=== PATIENT | female | born 1980 | race Caucasian/White ===

== ENCOUNTER 2018-09-08 14:37 | Emergency (ER) | payer SELFPAY ==
[~2018-09-08] VITALS: Ht 172.7 cm; Wt 81.6 kg
--- NOTE | 2018-09-08 15:12 | PHYS DOC ---
Past Medical History Past Medical History: No Pertinent History Past Surgical History: No Surgical History Alcohol Use: Occasionally Drug Use: Marijuana, Phencyclidine Adult General Chief Complaint Chief Complaint: DRUG ABUSE HPI HPI Patient is a 37 year old female who presents with patient came in per EMS of which she was found laying in the middle of Road after she had smoked PCP and beat. Patient denies any alcohol use. Patient answers some questions appropriately and others not appropriately. Patient states that she is in pain when asked but then laughs. Patient states she is 9 months but does not look 9 months . Pupils are at a 3 and are equal and reactive. Review of Systems Review of Systems Constitutional: Denies fever or chills [] Eyes: Denies change in visual acuity, redness, or eye pain [] HENT: Denies nasal congestion or sore throat [] Respiratory: Denies cough or shortness of breath [] Cardiovascular: No additional information not addressed in HPI [] GI: Denies abdominal pain, nausea, vomiting, bloody stools or diarrhea [] : Denies dysuria or hematuria [] Musculoskeletal: Denies back pain or joint pain [] Integument: Denies rash or skin lesions [] Neurologic: Altered due to PCP use. Denies headache, focal weakness or sensory changes [] All other systems were reviewed and found to be within normal limits, except as documented in this note. Allergies Allergies Allergies Coded Allergies Type Severity Reaction Last Updated Verified No Known Drug Allergies 09/08/18 No Physical Exam Physical Exam Constitutional: Well developed, well nourished, no acute distress, non-toxic appearance. [] HENT: Normocephalic, atraumatic, bilateral external ears normal, oropharynx moist, no oral exudates, nose normal. [] Eyes: PERRLA, EOMI, conjunctiva normal, no discharge. [] Neck: Normal range of motion, no tenderness, supple, no stridor. [] Cardiovascular:Heart rate regular rhythm, no murmur [] Lungs & Thorax: Bilateral breath sounds clear to auscultation [] Abdomen: Bowel sounds normal, soft, no tenderness, no masses, no pulsatile masses. [] Skin: Warm, dry, no erythema, no rash. [] Back: No tenderness, no CVA tenderness. [] Extremities: No tenderness, no cyanosis, no clubbing, ROM intact, no edema. [] Neurologic: Alert and oriented X 3, normal motor function, normal sensory function, no focal deficits noted. [] Psychologic: Affect normal, judgement altered due to PCP use, mood normal. [] Current Patient Data Vital Signs Vital Signs Date Time Temp Pulse Resp B/P (MAP) Pulse Ox O2 Delivery O2 Flow Rate FiO2 09/08/18 14:37 97.9 77 18 174/105 (128) 96 Room Air 97.9 Lab Values Laboratory Tests Test 09/08/18 16:05 Urine Collection Type Unknown Urine Color Yellow Urine Clarity Clear Urine pH 6.5 Urine Specific [place] 1.025 Urine Protein Negative mg/dL (NEG-TRACE) Urine Glucose (UA) Negative mg/dL (NEG) Urine Ketones (Stick) Negative mg/dL (NEG) Urine Blood Negative (NEG) Urine Nitrite Negative (NEG) Urine Bilirubin Small (NEG) Urine Urobilinogen Dipstick 1.0 mg/dL (0.2 mg/dL) Urine Leukocyte Esterase Negative (NEG) Urine RBC 0 /HPF (0-2) Urine WBC 0 /HPF (0-4) Urine Squamous Epithelial Cells Few /LPF Urine Bacteria 0 /HPF (0-FEW) Urine Opiates Screen Neg (NEG) Urine Methadone Screen Neg (NEG) Urine Barbiturates Neg (NEG) Urine Phencyclidine Screen Pos (NEG) Urine Amphetamine/Methamphetamine Neg (NEG) Urine Benzodiazepines Screen Neg (NEG) Urine Cocaine Screen Neg (NEG) Urine Cannabinoids Screen Pos (NEG) Urine Ethyl Alcohol Neg (NEG) EKG EKG SINUS RHYTHM AND NO STEMI[] Interpretation Time: [address] CRAWFORD Radiology/Procedures Radiology/Procedures [] Course & Med Decision Making Course & Med Decision Making Patient is a 37 year old female who presents with patient came in per EMS of which she was found laying in the middle of Road after she had smoked PCP and beat. Patient denies any alcohol use. Patient answers some questions appropriately and others not appropriately. Patient states that she is in pain when asked but then laughs. Patient states she is 9 months but does not look 9 months . Pupils are at a 3 and are equal and reactive. Speaks in full clear senses. Vital signs are within normal limits. Lungs are clear to auscultation all lobes. She is alert but altered due to drugs. Patient moves all extremities equally with equal strength. There are no abrasions or bruising or deformities on her body. Patient has no pain with palpation to extremities, abdomen, neck or spine. Abdomen soft and nontender. Patient has no extremity edema. No respiratory distress. Heart rate regular. Skin pink warm and dry. Mucous members are moist. Cap refill less than 3 seconds in all extremities. Ekg shows Sinus Rhythm and no STEMI. Vital signs remain wnl. Patients mental status is unchanged and she is quiet and cooperative. Patient is positive for PCP and Marijuana. Patient is stable and will go home with her with substance abuse resources. Patient denies currently wanting to go to a substance abuse program. Patient denies SI or HI. Dragon Disclaimer Dragon Disclaimer This electronic medical record was generated, in whole or in part, using a voice recognition dictation system. Departure Departure Impression: Primary Impression: Substance abuse Disposition: 01 HOME, SELF-CARE Condition: STABLE Referrals: UNKNOWN PCP NAME (PCP) Patient Instructions: Substance Abuse-Brief Additional Instructions: Stop using drugs. Drink plenty of fluids. Follow up with your primary care of at one of the substance abuse programs listed on the resource sheet. TRINA ESTRELLA APRN Sep 08, 2018 15:12
--- NOTE | 2018-09-08 16:07 | EKG ---
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
[2018-09-08 16:12] LABS: BILIRUBIN,URINE SMALL (NEG); CLARITY,URINE CLEAR; COLOR,URINE YELLOW; NITRITE,URINE NEGATIVE (NEG); PH,URINE 6.5; PROTEIN,URINE NEGATIVE (NEG-TRACE)
[2018-09-08 16:18] LABS: BARBITURATES NEG (NEG); BENZODIAZEPINES NEG (NEG); CANNABINOIDS POS (NEG); COCAINE NEG (NEG); METHADONE NEG (NEG); OPIATES NEG (NEG); PHENCYCLIDINE POS (NEG)
[2018-09-08 16:20] LABS: AMPHETAMINE/METHAMPHETAMINE NEG (NEG)
[2018-09-08 16:27] LABS: BACTERIA,URINE 0 /HPF (0-FEW); RBC,URINE 0 /HPF (0-2); WBC,URINE 0 /HPF (0-4)
[2018-09-08 16:28] LABS: SQUAMOUS EPITHELIAL CELL,UR FEW /LPF
[2018-09-08 17:10] LABS: U PREG PATIENT NEGATIVE (NEG)
[2018-09-08 17:51] VITALS: BP 151/88
== END 2018-09-08 17:59 | disposition home or self-care (01) ==
LOC: ER 14:37
DX: F16.20 Hallucinogen dependence, uncomplicated (principal); F12.20 Cannabis dependence, uncomplicated
CPT/HCPCS: 80307; 81001; 81025; 93005; 99284-25